=== PATIENT | female | born 1985 | race Caucasian/White ===

== ENCOUNTER 2016-10-13 20:24 | Emergency (ER) | payer OTHER ==
[2016-10-13] MEDS ORDERED: OPTIRAY 350 100 ML VIAL HMH IV ONE (20:25)
[2016-10-13] MEDS ORDERED: SODIUM CHLORIDE 0.9% 2,000 ML ONE (21:32)
[2016-10-13] MEDS ORDERED: ONDANSETRON 4 MG VIAL ONE (21:33)
[2016-10-13] MEDS ORDERED: KETOROLAC 30 MG/ML VIAL ONE (21:33)
[2016-10-13] MEDS ORDERED: DILAUDID 1 MG/ML AMP ONE (22:34)
== END 2016-10-14 00:02 ==
LOC: ER 20:24
DX: R10.84 Generalized abdominal pain (principal); F17.210 Nicotine dependence, cigarettes, uncomplicated
CPT/HCPCS: 36415; 74177; 80053; 81001; 83690; 84703; 85025; 87088; 96361; 96374; 96375